=== PATIENT | female | born 1975 ===

== ENCOUNTER 2021-03-15 10:27 | Day surgery (SDC) | payer OTHER ==
[~2021-03-15 10:27] MED LIST: COMBIPATCH 0.01 EACH TD; PROGESTERONE100 M1 PO; WELLBUTRIN XL150 M1 PO
== END 2021-03-15 23:30 | disposition home or self-care (01) ==
LOC: CIR.AMB 10:27
PROVIDERS: ATTEND Obstetrics & Gynecology
DX: N84.0 Polyp of corpus uteri (principal); Z20.822 Contact with and (suspected) exposure to COVID-19